=== PATIENT | male | born 1970 | race Caucasian/White ===

== ENCOUNTER → 2018-02-02 | Outpatient (CLI) | payer MEDICAID ==
[~2018-02-02] MED LIST: iohexol 300mg/ml 100ml inj. ONE
== END | disposition home or self-care (01) ==
LOC: 64 CT 09:36
PROVIDERS: ATTEND Internal Medicine Critical Care Medicine
DX: L02.11 Cutaneous abscess of neck (principal); M50.30 Other cervical disc degeneration, unspecified cervical region; R60.0 Localized edema
CPT/HCPCS: 70491; Q9967